=== PATIENT | male | born 1940 | race Caucasian/White ===

== ENCOUNTER 2020-04-20 08:35 | Day surgery (SDC) | payer MEDICARE, OTHER ==
--- NOTE | 2020-04-13 10:58 | RADIOLOGY REPORT (SQ) ---
EXAM DESCRIPTION: CHEST PA/LATERAL IMAGES COMPLETED DATE/TIME: 04/13/2020 10:44 am REASON FOR STUDY: PRE-OP COMPARISON: None. EXAM PARAMETERS: NUMBER OF VIEWS: Two views. TECHNIQUE: PA and lateral views of the chest were obtained. RADIATION DOSE: NA. LIMITATIONS: None. FINDINGS: LUNGS AND PLEURA: Apical pleural and parenchymal scars. There is no acute consolidation, sizeable pleural effusion or pneumothorax. MEDIASTINUM AND HILAR STRUCTURES: No mediastinal or hilar contour abnormality. HEART AND VASCULAR STRUCTURES: The cardiac silhouette and pulmonary vasculature are within normal escobar its. BONES: No acute findings. HARDWARE: Sternotomy wires. OTHER: No other finding. IMPRESSION: No acute cardiopulmonary process. TECHNICAL DOCUMENTATION: JOB ID: [id number] 2010 [employer]- All Rights Reserved Reading location - IP/workstation name: [email or web address]
[2020-04-13 11:17] LABS: ANION GAP 5 (5-19); BLOOD UREA NITROGEN 9 mg/dL (7-20); CALCIUM 9.5 mg/dL (8.4-10.2); CARBON DIOXIDE 29 mmol/L (22-30); CHLORIDE 104 mmol/L (98-107); GLUCOSE 98 mg/dL (75-110); POTASSIUM 4.8 mmol/L (3.6-5.0)
--- NOTE | 2020-04-13 20:16 | EKG REPORT ---
SEVERITY:- NORMAL ECG - SINUS RHYTHM : Confirmed by: Quincy Baltazar MD 13-Apr-2020 20:16:01
[~2020-04-20 08:35] MED LIST: LACTATED RINGERS 1000 ML IV PRN; LIDOCAINE 0.5% INJ-PF (5 MG/ML) 50 ML SDV SUBCUT PRN
[2020-04-20] MEDS ORDERED: PROPOFOL INJ 200 MG/20 ML VIAL IV ONE (10:50)
--- NOTE | 2020-04-20 13:09 | Discharge Summary ---
Discharge Summary (SDC) - Discharge Final Diagnosis: sessile polyps at 80 cm Date of Surgery: 04/20/20 Discharge Date: 04/20/20 Condition: Stable Treatment or Instructions: Discharge home. Diet as tolerated. Activity: Nonstrenuous. Follow-up with [facility] [facility] in 2-3 weeks. Referrals: NATALIA TSANG DO [Primary Care Provider] - Discharge Diet: As Tolerated Respiratory Treatments at Home: Deep Breathing/Coughing, Incentive Spirometer Discharge Activity: Balance Activity w/Rest Home Care Assistance: None Needed Report the Following to Your Physician Immediately: Shortness of Breath, Nausea, Vomiting, Increase in Pain, Fever over 101 Degrees, Unusual Bleeding, Redness
--- NOTE | 2020-04-20 13:22 | Operative Report ---
Nonrecallable Operative Report DATE OF SURGERY: 04/20/20 PREOPERATIVE DIAGNOSIS: Sessile polyp at 80 cm POSTOPERATIVE DIAGNOSIS: Same as above OPERATION: 1. Colonoscopy with endoscopic mucosal resection of sessile polyp at 80 cm with hexagonal snare. 2. Submucosal injection of saline to facilitate removal of the sessile polyp. SURGEON: YEHUDA GIRALDO ANESTHESIA: LMAC TISSUE REMOVED OR ALTERED: Endoscopic mucosal resection at 80 cm. COMPLICATIONS: none apparent ESTIMATED BLOOD LOSS: minimal PROCEDURE: Procedure detail: After informed consent was obtained, the patient was brought to the operating room and laid in the left lateral decubitus position. The endoscope was inserted into the rectum. It was passed up the rectum, sigmoid colon, descending colon, across the transverse colon, down the ascending colon, and into the cecum. The ileocecal valve and appendiceal orifice were identified. The scope was then withdrawn, circumferentially noting the mucosa. The prep was good. The scope was withdrawn past the ascending colon, transverse colon, into the descending colon. At the area of the descending colon a large tattoo was identified. There was a flat, sessile appearing area of abnormal tissue. I surmise that this is the area of concern. The sessile polyp was removed in piecemeal fashion using a hexagonal snare and submucosal injection of saline. No excessive bleeding was identified. The scope was then withdrawn down the remaining descending and sigmoid colon. Multiple scattered diverticula were seen throughout the sigmoid colon. Retroflexion maneuver was performed in the rectum, noting no significant internal hemorrhoids. The scope was straightened, air was suctioned from the rectum, the scope was removed, and the procedure was concluded.
[2020-04-20 14:24] VITALS: BP 111/62
== END 2020-04-20 14:24 | disposition home or self-care (01) ==
LOC: OROUT 08:35
PROVIDERS: ATTEND Surgery
DX: Z12.11 Encounter for screening for malignant neoplasm of colon (principal); D12.5 Benign neoplasm of sigmoid colon; Z86.010 Personal history of colon polyps; I25.10 Atherosclerotic heart disease of native coronary artery without angina pectoris; Z03.818 Encounter for observation for suspected exposure to other biological agents ruled out; I10 Essential (primary) hypertension; E78.00 Pure hypercholesterolemia, unspecified; K21.9 Gastro-esophageal reflux disease without esophagitis
CPT/HCPCS: 45380; 93005; 36415; 80048; 88305 ×2; 71046; 93010; U0003; J2704; C9803; 811; 87635